=== PATIENT | male | born 1985 | race Caucasian/White ===

== ENCOUNTER 2021-05-01 13:19 | Outpatient (CLI) | payer OTHER | END 2021-05-01 13:20 | disposition home or self-care (01) | LOC: CSHWCC 13:19 | PROVIDERS: ATTEND Nurse Practitioner Family | DX: T81.89XD Other complications of procedures, not elsewhere classified, subsequent encounter (principal); E11.621 Type 2 diabetes mellitus with foot ulcer; L97.426 Non-pressure chronic ulcer of left heel and midfoot with bone involvement without evidence of necrosis; R60.0 Localized edema; E11.69 Type 2 diabetes mellitus with other specified complication; I10 Essential (primary) hypertension; I87.2 Venous insufficiency (chronic) (peripheral); Z98.890 Other specified postprocedural states | CPT/HCPCS: 99203; G0463 ==